=== PATIENT | male | born 1990 ===

== ENCOUNTER 2019-05-16 14:44 | Emergency (ER) | payer SELFPAY ==
[2019-05-16] MEDS ORDERED: Dexamethasone 10 MG/ML VIAL ONE (15:43)
--- NOTE | 2019-05-16 16:25 | RAD ---
Chest one view HISTORY: Cough. FINDINGS: Cardiac silhouette and pulmonary vasculature are unremarkable. Mediastinum is midline. No c onfluent airspace consolidation or evidence of pneumothorax. IMPRESSION : Normal exam.
== END 2019-05-16 17:15 | disposition home or self-care (01) ==
LOC: ERS 14:44
DX: J06.9 Acute upper respiratory infection, unspecified (principal); F17.210 Nicotine dependence, cigarettes, uncomplicated
CPT/HCPCS: 71045; J1100